=== PATIENT | male | born 1990 | race African-American/Black ===

== ENCOUNTER 2023-09-15 14:36 | Emergency (ER) | payer OTHER, SELFPAY ==
--- NOTE | ~2023-09-15 | US_ITS ---
EXAMINATION: US venous doppler UE LT DATE: 09/15/2023 18:08 INDICATION: arm pain . TECHNIQUE: Grayscale ultrasound images without and with compression and Doppler ultrasound images of the left upper extremity veins were obtained. COMPARISON: None. FINDINGS: The visualized portions of the left internal jugular vein, subclavian vein, axillary vein, brachial v eins, basilic vein, cephalic vein, radial vein, and ulnar vein are patent. IMPRESSION: No deep venous thrombosis. Reviewed, dictated and finalized at location K. PIECE ASSEMBLER IMPRESSION: No deep venous thrombosis.
--- NOTE | ~2023-09-15 | XR_ITS ---
EXAMINATION: XR chest 2V 09/15/2023 15:00 INDICATION: Left arm pain PROCEDURE: 2 view chest COMPARISON: 03/10/2016 FINDINGS: The lungs are clear. The cardiomediastinal silhouette is within normal limits. There are no pleural effusions. There is no pneumothorax suspected. IMPRESSION: 1: NO ACUTE CARDIOPULMONARY DISEASE. Reviewed, dictated and finalized at location B. R CLEANER
[2023-09-15 14:38] VITALS: BP 145/88; PULSE 86; RESP 18; TEMP 37.3; O2SAT 100
--- NOTE | 2023-09-15 14:42 | ECG_ITS ---
Measurements Intervals [place] Rate: 57 P: 62 [place]: 168 QRS: 66 QRSD: 102 T: 50 QT: 401 QTc: 393 Interpretive Statements SINUS BRADYCARDIA VOLTAGE CRITERIA FOR LVH [MEETS CRITERIA IN ONE OF: R(aVL), S(V1), R(V5), R(V5/V6)+S(V1)] MODERATE T-WAVE ABNORMALITY, CONSIDER ANTERIOR ISCHEMIA [-0.1+ mV T WAVE IN V3/V4] NO PREVIOUS ECG AVAILABLE FOR COMPARISON Electronically Signed On 09-15-2023 21:12:59 DRESS CUTTER by Lynsey Davalos M.D.
[2023-09-15 15:06] LABS: Basophils Percent Auto 0.5 % (0.2-1.2); Eosinophils Percent Auto 0.5 % (0-4.4); Hematocrit 48.2 % (42.0-52.0); Hemoglobin 15.6 g/dL (14.0-18.0); Lymphocytes Absolute Auto 1.48 K/mm3 (0.9-3.2); Lymphocytes Percent Auto 34.8 % (18.3-44.2); Mean Corpuscular HGB Conc 32.4 g/dl (32-36); Mean Corpuscular Hemoglobin 27.2 pg (26-34); Mean Corpuscular Volume 84.1 fl (80-100); Mean Platelet Volume 9.4 fl (7.4-10.4); Monocytes Absolute Auto 0.4 K/mm3 (0.1-0.6); Monocytes Percent Auto 9.4 % (2.6-8.5); Neutrophils Absolute Auto 2.3 K/mm3 (1.3-6.7); Neutrophils Percent Auto 54.8 % (45.5-73.1); Platelet Count Result 248 k/mm3 (150-375); Red Blood Count 5.73 M/mm3 (4.6-6.20); Red Cell Distribution Width 12.6 % (11.5-14.5); White Blood Count 4.3 K/mm3 (4.5-10.0)
[2023-09-15 15:16] LABS: Alanine Aminotransferase 29 U/L (6-50); Albumin Level 4.7 g/dL (3.5-5.1); Alkaline Phosphatase 89 U/L (38-126); Anion Gap 7 mmol/L (8-16); Aspartate Amino Transferase 34 U/L (17-59); Bilirubin,Total 0.6 mg/dL (0.2-1.3); Blood Urea Nitrogen 15 mg/dL (9-20); Calcium 9.5 mg/dL (8.4-10.2); Carbon Dioxide 26 mmol/L (22-30); Chloride 102 mmol/L (98-107); Estimated CRCL calculation 81 ml/min; Estimated Glomerular Filt Rate > 60; Glucose 131 mg/dL (65-110); Lipase 68 U/L (23-300); Potassium 3.8 mmol/L (3.4-5.0); Sodium 135 mmol/L (137-145)
[2023-09-15 15:20] LABS: Prothrombin Time 13.9 Seconds (11.1-14.7)
[2023-09-15 15:21] LABS: Partial Thromboplastin Time 31.3 SECONDS (22.3-36.8)
[2023-09-15 15:27] LABS: Troponin I < 0.012 ng/mL (0.000-0.034)
[2023-09-15 16:35] VITALS: BP 107/95; PULSE 71; RESP 20; O2SAT 100
--- NOTE | 2023-09-15 16:37 | ED.EXTPRO ---
HPI - Extremity Problem General Chief complaint: Extremity Problem,Nontraumatic Stated complaint: L hand pain Time Seen by Provider: 09/15/23 16:26 History of Present Illness HPI Narrative: Patient is a 33 year old male with history of HTN here with left arm pain. He notes that the pain began around 3-4 am today. Notes the pain is located in his biceps and feels tight and squeezing like a blood pressure cuff is going off when it is not. The arm pain seems to extend down into his forearm. He denies any injuries, denies any recent changes in activity, diet or medications. No prior history of PE or DVT. He has not taken any thing for the pain. No associated fever, chills, arm redness or swelling. Of note, he has experienced intermittent pins and needles sensations as well as body aches throghout his entire body occasionally over the last 1 month, has not sought treatment for this. He also notes some intermittent midsternal chest pains when he lays down at night which have been present for more than a month. He denies current chest pain. No cough, congestion. Related Data Allergies Allergy/AdvReac Type Severity Reaction Status Date / Time No Known Allergies Allergy Unverified 10/05/16 20:55 Review of Systems Review of Systems: All systems reviewed & are unremarkable except as noted in HPI and below Exam Narrative: GENERAL: Well-appearing, well-nourished, and in no acute distress. HEAD: Normocephalic, atraumatic. EYES: PERRLA and EOMI. ENT: Nares clear. Mucous membranes moist. NECK: Supple. CHEST: Clear to auscultation. No respiratory distress. HEART: Regular rate and rhythm. Normal peripheral pulses. ABDOMEN: Soft, nontender, nondistended. EXTREMITIES: Normal range of motion. No tenderness to the left shoulder, elbow or wrist with normal range of motion. No arm swelling, compartments are soft. No erythema or warmth appreciated. Sensation intact with strong equal radial pulses bilaterally. He has isolated tenderness over the medial aspect of his biceps muscle. No deformities appreciated. SKIN: Warm, dry, no rash. NEURO: No focal deficits. Alert and oriented x3. PSYCH: Normal mood and affect. Course Course Emergency Course: Chart review performed. Patient here with left arm pain which began today. Triage vitals grossly normal. No prior visits in our system. Cardiac workup was initiated in triage. Results reviewed, CBC grossly normal, electrolytes within normal limits. Troponin normal. LFTs within normal limits. CXR negative. Patient seen and evaluated, non toxic appearing. No deformities in the extremity, no concern for cellulitis or traumatic injury. Compartments are soft, will add on CPK and doppler to triage workup. Toradol ordered for pain. Will reevaluate. CPK within normal limits. Pending US read. US negative for DVT. Repeat EKG and troponin unchanged. The results of pertinent diagnostic studies and exam findings were discussed. The patient?s provisional diagnosis and plan of care were discussed with the patient and present family. The patient and/or present family expressed understanding of the diagnosis and plan. The nurse was instructed to provide written instructions and appropriate follow-up information. The patient understands their need and responsibility to obtain additional follow-up as instructed. The risks of medications administered and prescribed were discussed with the patient and family present. Vital Signs Vital signs: Vital Signs Temperature 99.2 F 09/15/23 14:38 Pulse Rate 86 09/15/23 14:38 Respiratory Rate 18 09/15/23 14:38 Blood Pressure 145/88 H 09/15/23 14:38 Pulse Oximetry 100 09/15/23 14:38 Oxygen Delivery Room Air 09/15/23 14:38 Temperature 98.0 F 09/15/23 18:22 Pulse Rate 64 09/15/23 18:22 Respiratory Rate 18 09/15/23 18:22 Blood Pressure 142/90 H 09/15/23 18:22 Pulse Oximetry 100 09/15/23 18:22 Oxygen Delivery Room Air 09/15/23 14:38 MDM - Extr
[2023-09-15 17:01] VITALS: BP 130/90; PULSE 65; RESP 21; O2SAT 100
[2023-09-15] MEDS: KETOROLAC 30 MG/ML VIAL (*BKC) IM (17:06)
[2023-09-15 17:45] LABS: Creatine Kinase 134 U/L (55-170)
--- NOTE | 2023-09-15 17:54 | PC.NURSE ---
pt unavailable at the time the 3 hour trop was due because pt was done in ultrasound
[2023-09-15 18:22] VITALS: BP 142/90; PULSE 64; RESP 18; TEMP 36.7; O2SAT 100
[2023-09-15 19:05] LABS: Troponin I < 0.012 ng/mL (0.000-0.034)
== END 2023-09-15 20:10 | disposition home or self-care (01) ==
PROVIDERS: Emergency Medicine; Emergency Provider Student in an Organized Health Care Education/Training Program
DX: M79.602 Pain in left arm (principal); R07.89 Other chest pain; I10 Essential (primary) hypertension
CPT/HCPCS: 36415; 71046; 80053; 82550; 83690; 84484; 85025; 85610; 85730; 93005; 93971; 96372; 99284; J1885